=== PATIENT | female | born 1985 | race Caucasian/White ===

== ENCOUNTER 2016-07-21 19:52 | Emergency (ER) | payer OTHER ==
[~2016-07-21 19:52] MED LIST: ELA10 PO; MIN2 PO; NAP500 PO; T3; VIS25; ZIT250 PO; ZOL100 PO
[2016-07-21 20:21] LABS: microscopic required? NO
[2016-07-21 20:27] LABS: UA SPECIFIC GRAVITY >=1.030 (1.005-1.035); urine erythrocyte NEGATIVE (NEGATIVE)
[2016-07-21 22:57] VITALS: BP 121/85
== END 2016-07-21 22:57 | disposition home or self-care (01) ==
LOC: ED 19:52
PROVIDERS: Emergency Medicine
DX: O20.0 Threatened abortion (principal); F99 Mental disorder, not otherwise specified; Z3A.01 Less than 8 weeks gestation of pregnancy
CPT/HCPCS: 36415; 87491; 87591

== ENCOUNTER 2016-08-30 18:22 | Emergency (ER) | payer OTHER ==
[2016-08-30 21:05] VITALS: BP 122/67
== END 2016-08-30 21:05 | disposition home or self-care (01) ==
LOC: ED 18:22
DX: O99.89 Other specified diseases and conditions complicating pregnancy, childbirth and the puerperium (principal); O21.0 Mild hyperemesis gravidarum; S93.402A Sprain of unspecified ligament of left ankle, initial encounter; F99 Mental disorder, not otherwise specified; Z3A.12 12 weeks gestation of pregnancy; Z79.899 Other long term (current) drug therapy; W10.9XXA Fall (on) (from) unspecified stairs and steps, initial encounter; Y93.89 Activity, other specified; Y92.89 Other specified places as the place of occurrence of the external cause; Y99.8 Other external cause status
CPT/HCPCS: Q0162

== ENCOUNTER 2016-09-24 06:38 | Emergency (ER) | payer OTHER ==
[2016-09-24 07:21] LABS: BASOPHIL % 0.4 % (0-2); PLATELET COUNT 289 x10^3mcL (130-400); RED CELL DISTRIBUTION WIDTH 14.2 % (11.5-14.5)
[2016-09-24 07:24] LABS: CALCIUM 8.3 mg/dL (8.5-10.1); CARBON DIOXIDE 21.4 mmol/L (21-32); CHLORIDE SERUM 108 mmol/L (98-107); CREATININE SERUM 0.5 mg/dL (0.6-1.0); GFR1 > 60 mL/min; GLUCOSE SERUM 135 mg/dL (74-106); SODIUM SERUM 142 mmol/L (136-145)
[2016-09-24 07:28] LABS: ALKALINE PHOSPHATASE 81 U/L (46-116); ALT/SGPT 18 U/L (14-59); AMYLASE 75 U/L (25-115); AST/SGOT 10 U/L (15-37); BILIRUBIN TOTAL 0.14 mg/dL (0.20-1.00); LIPASE 108 IU/L (73-393); TOTAL PROTEIN, SERUM 6.5 g/dL (6.4-8.2)
[2016-09-24 07:29] LABS: ALBUMIN 2.5 g/dL (3.4-5.0)
[2016-09-24 10:39] VITALS: BP 109/70
== END 2016-09-24 10:39 | disposition home or self-care (01) ==
LOC: ED 06:38
PROVIDERS: Emergency Medicine
DX: O21.0 Mild hyperemesis gravidarum (principal); R19.7 Diarrhea, unspecified; F43.10 Post-traumatic stress disorder, unspecified; Z3A.15 15 weeks gestation of pregnancy; Z90.49 Acquired absence of other specified parts of digestive tract
CPT/HCPCS: 83880; J2405; J3490; J7030; Q0092